=== PATIENT | male | born 1995 | race Caucasian/White ===

== ENCOUNTER 2025-05-03 04:13 | Emergency (ER) | payer SELFPAY ==
[2025-05-03 04:17] VITALS: BP 144/92; PULSE 112; O2SAT 98
[2025-05-03 04:21] VITALS: BP 123/73; PULSE 105; RESP 16; TEMP 36.9; O2SAT 99; BMI 26.7
[2025-05-03 04:25] VITALS: BP 123/73; PULSE 105; RESP 16; TEMP 36.9; O2SAT 99
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
[2025-05-03] MEDS: Lidocaine HCl 1%/Epi 1:100,000 10 ML VIAL INFILTRATI (04:49)
--- NOTE | 2025-05-03 05:04 | PC.NURSE ---
pt walked to the bathroom with a steady gait. A/O x4. pt refusing head CT. at bedside for sutures to head lac.
--- OUTSIDE RECORDS SUMMARY | 2025-05-03 05:27 | XMS_ITS ---
[facility] Organization Unknown Encounters Encounter Type Encounter Reason Primary Diagnosis Location Date Ambulatory Hemorrhage of le ft orbit [employer] 01/08/2022 Care Team Organization Name Specialty Phone Email Start Date End Da te [facility] [email or web address] PCP,No Primary Care 01/08/2022 04/22/2024 [facility] NO PCP Primary Care 01/08/2022 01/08/2022
--- OUTSIDE RECORDS SUMMARY | 2025-05-03 05:27 | XMS_ITS | Encounter Summary ---
Author Organization [facility] Address [address] [place] [address] Care Team Providers Care Roller Mechanic Name Role Phone No, Pcp (Do Not Change Name) Primary Care Provid er Unavailable Encounter Details Date Type Department Care Team (Latest Contact Info) Description 07/24/2014 Transcribed Orders [place] [address] Joel Wiley MD [address] [facility] [address] [place] [address] Displacement of lumbar intervertebral disc without myelopathy (Primary Dx) Social History Tobacco Use Types Packs/Day Years Used Date Smoking Tobacco: Never Assessed Sex and Gender Information Value Date Recorded Sex Assigned at Not on file Legal Sex Male 12:31 AM EDT Gender Identity Not on file Sexual Orientation Not on file documented as of this encounter Plan of Treatment Not on file documented as of this encounter Results * Partial thromboplastin time ( GH Q YH) (07/24/2014 12:55 PM EST) PTT 26.2 21.9 - 30.2 sec [facility] Blood specimen (specimen) 07/24/2014 12:55 PM EST us Joel Wiley MD LAB BLOOD ORDERABLES Final Res ult [facility] [address] [place] [address] * Protime & INR (07/24/2014 12:55 PM EST) Prothrombin Time 11.1 9.3 - 12.1 sec [facility] INR 1.04 0.86 - 1.14 [facility] Comment: Recommended ranges for Protime INR For Medical/Surgical Thromboembolic States 2.0 -3.0 For Mechnical valves and recurrent PE 3.0 4.5 For Orthopedic Surgery 1.5 2.5 Blood specimen (specimen) 07/24/2014 12:55 PM EST us Jeol Wiley MD LAB BLOOD ORDERABLES Final Res ult [facility] [address] [place] [id number] * (ABNORMAL) CBC and differential (07/24/2014 12:55 PM EST) WBC 5.49 4.50 - 11.00 X 10(3)/[facility] LABORATORY RBC 5.72 4.30 - 5.90 X 10(6)/[facility] Hemoglobin 16.2 13.9 - 16.3 g/dL [facility] Hematocrit 48.2 39.0 - 55.0 % [facility] MCV 84.3 80.0 - 94.0 FL [facility] MCH 28.3 25.0 - 35.0 pg [facility] MCHC 33.6 33.0 - 37.0 % [facility] Red Cell Distribution Width SD 36.8 35.1 - 43.9 FL [facility] Red Cell Distribution Width-CV 12.1 11.6 - 14.4 % [facility] Platelets 273 120 - 450 X 10(3)/[facility] MPV 10.3(H) 8.5 - 9.0 FL [facility] nRBC% 0.0 0.0 - 0.0 /100 WBC [facility] nRBC Absolute, Auto 0.00 0.00 - 0.00 /[facility] Blood specimen (specimen) ARM NEC / Unknown 07/24/2014 12:55 PM EST us Joel Wiley MD LAB BLOOD ORDERABLES Final Res ult [facility] [address] [place] [address] * (ABNORMAL) Comprehensive metabolic panel (07/24/2014 12:55 PM EST) Glucose 82 70 - 100 mg/dL [facility] BUN 14 9 - 20 mg/dL [facility] Creatinine 0.90 0.66 - 1.25 mg/dL [facility] Sodium 137 137 - 145 mmol/L [facility] Potassium 4.5 3.5 - 5.1 mmol/L [facility] Chloride 97(L) 98 - 107 mmol/L [facility] CO2 31(H) 22 - 30 mmol/L [facility] Anion Gap 9 7 - 16 mmol/L [facility] Calcium 9.8 8.4 - 10.2 mg/dL [facility] Total Protein 8.7(H) 6.3 - 8.2 g/dL [facility] Albumin 5.1(H) 3.5 - 5.0 g/dL [facility] Globulin 3.6(H) 2.0 - 3.5 g/dL [facility] A/G Ratio 1.4 1.1 - 2.2 [facility] Aspartate Aminotransferase (AST) 28 17 - 59 u/l [facility] Alkaline Phosphatase 90 38 - 126 u/l [facility] Total Bilirubin 1.0 0.2 - 1.3 mg/dL [facility] Alanine Aminotransferase (ALT) 43 21 - 72 u/l [facility] eGFR >60 [facility] Comment: Interpretation Stage 1 90 ml/min or greater Healthy kidneys or kidney damage with normal or high eGFR Stage 2 60-89 ml/min Kidney damage and mild decrease in eGFR Stage 3 30-59 ml/min Moderate decrease in eGFR Stage 4 15-29 ml/min Severe decrease in eGFR Stage 5 <15 ml/min Kidney failure The GFR is calculated to include the patient's race and gender as entered in Patient Demographics. Blood specimen (specimen) 07/24/2014 12:55 PM EST us Joel Wiley MD LAB BLOOD ORDERABLES Edited Re sult - Final Performing Organization Address [facility]/ZIP Co de Phone Number [facility] [address] [place] [address] * Urinalysis (BH GH L Q) (07/24/2014 12:45 PM EST) Color, UA YELLOW YELLOW [facility] Specific [place], UA 1.022 1.003 - 1.033 [facility] Leukocyte Esterase, UA NEGATIVE NEGATIVE [facility] Nitrite, UA NEGATIVE NEGATIVE [facility] pH, UA 7.0 5.0 - 8.0 [facility] Protein, UA NEGATIVE NEGATIVE mg/dL [facility] Glucose, UA NEGATIVE NEGATIVE mg/dL [facility] Ketones, UA NEGATIVE NEGATIVE mg/dL [facility] Urobilinogen, UA 1.0 0.2 - 2.0 EU/dL [facility] Bilirubin, UA NEGATIVE [facility] Comment:Positive urine bilir ubin results unable to be confirmed by Ictotest due to orthodontic assistant backorder. Blood, UA NEGATIVE NEGATIVE [facility] Urine specimen (specimen) 07/24/2014 12:45 PM EST Joel Wiley MD URINE ORDERABLES Final Result Performing Organization Address [facility] [place] [place] [address] documented in this encounter Visit Diagnoses Diagnosis Displacement of lumbar intervertebral disc without myelopathy- Primary documented in this encounter Care Teams Roller Mechanic Relationship Specialty Start Date End Date No, Pcp (Do Not Change Name) PCP - General 06/11/14 documented as of this encounter
--- OUTSIDE RECORDS SUMMARY | 2025-05-03 05:27 | XMS_ITS | Clinical Summary ---
Author Organization [address] Address [address] [place] [address] Phone Care Team Providers Care Mathematics Technician Name Role Phone No, Pcp (Do Not Change Name) Primary Care Provid er Unavailable Medications diazepam (VALIUM) 2 MG tablet TID prn for muscle pain 9 tablet 0 06/11/2014 Active Social History Tobacco Use Types Packs/Day Years Used Date Smoking Tobacco: Never Assessed Sex and Gender Information Value Date Recorded Sex Assigned at Not on file Legal Sex Male 12:31 AM EDT Gender Identity Not on file Sexual Orientation Not on file Last Filed Vital Signs Vital Sign Reading Time Taken Comments Blood Pressure 150/85 06/11/2014 1:20 AM EDT Pulse 83 06/11/2014 1:20 AM EDT Temperature 36.7 C (98 F) 06/11/2014 1:20 AM EDT Respiratory Rate 16 06/11/2014 1:20 AM EDT Oxygen Saturation 96% 06/11/2014 1:20 AM EDT Inhaled Oxygen Concentration - - Weight 77.1 kg (170 lb) 06/11/2014 12:32 AM EDT Height - - Body Mass Index - - Plan of Treatment Health Maintenance Due Date Last Done Comments HIV screening 11/11/2007 Hepatitis C screening 2012 Tetanus adult (Td q 10,TDAP once) 2014 Covid-19 vaccine series ( - 2023-25 season) 2024 Influenza vaccine 05/05/2025 RSV Immunization (1 - 1-dose 75+ series) 2069 Meningococcal Vaccine Aged Out No melinda ty eligible based on patient's age to complete this topic Pneumococcal Vaccine (2 - 49 years) Aged Out No longer eligible based on patient's age to complete this [place] [id number] [employer] Care Teams Mathematics Technician Relationship Specialty Start Date End Date No, Pcp (Do Not Change Name) PCP - General 06/11/14
[2025-05-03 05:34] VITALS: BP 130/70; PULSE 100; RESP 16; TEMP 36.7; O2SAT 99
[2025-05-03 05:35] VITALS: BP 130/70; PULSE 100; RESP 16; TEMP 36.7; O2SAT 99
== END 2025-05-03 05:57 ==
PROVIDERS: Emergency Provider Emergency Medicine
DX: S01.01XA Laceration without foreign body of scalp, initial encounter (principal); R51.9 Headache, unspecified; X58.XXXA Exposure to other specified factors, initial encounter; Y93.9 Activity, unspecified; Y92.9 Unspecified place or not applicable; Y99.8 Other external cause status
CPT/HCPCS: 12002; 99284; J2004